=== PATIENT | female | born 1935 | race Caucasian/White ===

== ENCOUNTER 2016-12-27 02:32 | Emergency (ER) | payer MEDICAID, OTHER ==
[~2016-12-27] VITALS: Ht 152.4 cm; Wt 62.5 kg
[2016-12-27 02:34] VITALS: Ht 152.4 cm; Wt 62.5 kg
[2016-12-27] MEDS ORDERED: ONDANSETRON 4 MG INJ IV STA (03:01)
[2016-12-27] MEDS ORDERED: SOD CHLORIDE 0.9% 500 ML IV STA (03:01)
[2016-12-27] MEDS ORDERED: morphine 4 MG/ML VIAL IV STA (03:01)
--- NOTE | 2016-12-27 03:57 | RADRPT ---
PROCEDURE: CT Abdomen and pelvis without contrast. CLINICAL INDICATION: Abdominal pain. TECHNIQUE: CT scan of the abdomen and pelvis was performed on a multi-detector high-resolution CT scanner. Contiguous axial images were obtained from the lung bases to the ischial tuberosities wit hout intravenous contrast. Coronal and sagittal reformatted images were also obtained. Images were reviewed on the PACS workstation. One or more of the following dose reduction techniques were used: - Automated exposure control. - Adjustment of the mA and/or kV according to patient size. - Use of iterative reconstruction technique. Exam CTD/vol = 16.30 mGy. Total exam DLP = 864.74 mGy-cm. COMPARISON: None. FINDINGS: Evaluation of the lung bases demonstrates mild bibasilar atelectasis and bronchiectasis. There is a 4 mm nodule within the right middle lobe (image 15). Abdomen: The liver is normal in size with a mild nodular contour. There is no focal mass or dilata tion of the biliary tree. The gallbladder is not distended. The spleen, pancreas and bilateral adr enal glands are within normal limits. Bilateral kidneys are normal in size with a 9 mm hyperdense l esion within the mid left kidney. There is no radiopaque renal or ureteral calculus identified. Th ere is no hydronephrosis or hydroureter. There is no retroperitoneal adenopathy. The abdominal aor ta is of normal caliber with scattered atherosclerotic calcification. There is no abnormal bowel wall thickening or distension. There is no bowel obstruction or free air . A normal appendix is identified. There is no diverticulosis or diverticulitis. There is no asci alexx. Pelvis: The bladder is unremarkable. The uterus and adnexa are within normal limits. There is no significant pelvic adenopathy or free fluid. Evaluation of the osseous structures demonstrates no suspicious lytic or blastic lesion. There are d egenerative changes of the spine. There is a moderate compression deformity of the T6 vertebral bod y with up to 70% loss in vertebral body height. There is no bony retropulsion. There are calcified injection granulomas over bilateral buttocks. IMPRESSION: No acute abnormality identified within the abdomen and pelvis. Mild nodular contour of the liver suggestive of cirrhosis. Clinically correlate. Mild bibasilar atelectasis and bronchiectasis. Right middle lobe 4 mm nodule. Follow-up by Fleischner guidelines is recommended. Vascular calcifications reflective of atherosclerosis. Moderate compression deformity of T6, age indeterminate. Degenerative changes of the spine. .Kvng Quintero MD, Date Time Electronically viewed and signed by .Kvng Quintero MD, on 12/27/2016 03:56 .T/
[2016-12-27 04:21] LABS: ADD SCAN DIFF NO
[2016-12-27 04:30] LABS: ABNORMAL IP MESSAGE 1; BASOPHILS % 0.1 % (0.0-2.0); EOSINOPHILS # 0.1 10^3/ul (0.0-0.5); EOSINOPHILS % 0.5 % (0.0-7.0); HEMATOCRIT 41.2 % (37.0-47.0); HEMOGLOBIN 14.1 g/dl (12.0-16.0); LYMPHOCYTES # 0.3 10^3/ul (0.8-2.9); LYMPHOCYTES % 3.3 % (15.0-51.0); MEAN CORPUSCULAR HEMOGLOBIN 30.6 pg (29.0-33.0); MEAN CORPUSCULAR HGB CONC 34.2 g/dl (32.0-37.0); MEAN CORPUSCULAR VOLUME 89.4 fl (82.0-101.0); MEAN PLATELET VOLUME 11.1 fl (7.4-10.4); MONOCYTE # 0.6 10^3/ul (0.3-0.9); NEUTROPHIL # 9.1 10^3/ul (1.6-7.5); NEUTROPHILS % 89.8 % (39.0-77.0); PLATELET COUNT 114 10^3/UL (140-415); RED BLOOD COUNT 4.61 10^6/ul (4.20-5.40); RED CELL DISTRIBUTION WIDTH 12.5 % (11.5-14.5); WHITE BLOOD COUNT 10.1 10^3/ul (4.8-10.8)
[2016-12-27 04:42] LABS: ALBUMIN 4.1 g/dl (3.3-4.9)
[2016-12-27 04:43] LABS: POTASSIUM 3.5 mmol/L (3.5-5.1)
[2016-12-27 04:45] LABS: ALBUMIN/GLOBULIN RATIO 1.41; BILIRUBIN,INDIRECT 0.5 mg/dl (0-1.1); BILIRUBIN,TOTAL 0.5 mg/dl (0.2-1.3); CREATININE 0.44 mg/dl (0.44-1.00)
[2016-12-27 04:46] LABS: CALCIUM 8.8 mg/dl (8.4-10.2)
[2016-12-27 05:06] LABS: ADD UMIC YES; URINE BILIRUBIN (Dip) NEGATIVE (NEGATIVE); URINE BLOOD (Dip) TRACE (NEGATIVE); URINE COLOR YELLOW (YELLOW); URINE GLUCOSE (Dip) NEGATIVE (NEGATIVE); URINE KETONES (Dip) 40 (NEGATIVE); URINE LEUKOCYTE ESTERASE (Dip) NEGATIVE (NEGATIVE); URINE NITRITE (Dip) NEGATIVE (NEGATIVE); URINE TOTAL PROTEIN (Dip) 1+ (NEGATIVE); URINE UROBILINOGEN (Dip) 0.2 E.U./dL (0.1-1.0)
[2016-12-27 05:24] LABS: BACTERIA,URINE FEW; MUCUS,URINE MANY; SQUAMOUS EPITHELIAL CELL,UR FEW
--- NOTE | 2016-12-27 05:38 | ERD ---
ER Documentation Chief Complaint Date/Time DATE: 12/27/16 TIME: 05:37 Chief Complaint diffuse abd pain w/ vomiting and diarrhea since 2 hours ago HPI This is a 81-year-old female with diffuse abdominal vomiting diarrhea since 2 hours ago. Denies any fevers or chills. 2 episodes of diarrhea which is nonbloody. 2 episodes of vomiting was nonbloody and nonbilious. Abdominal pain is crampy in quality mild to moderate in intensity with no exacerbating or alleviating factors. ROS All systems reviewed and are negative except as per history of present illness. Allergies Allergies: Coded Allergies: No Known Allergy (Unverified , 12/27/16) PMhx/Soc History of Surgery: No Anesthesia Reaction: No Hx Neurological Disorder: No Hx Respiratory Disorders: Yes (pneumonia) Hx Cardiac Disorders: No Hx Psychiatric Problems: No Hx Miscellaneous Medical Probl: No Hx Alcohol Use: No Hx Substance Use: No Hx Tobacco Use: No Smoking Status: Never smoker Physical Exam Vitals Vital Signs Date Time Temp Pulse Resp B/P Pulse Ox O2 Delivery O2 Flow Rate FiO2 12/27/16 05:17 78 14 118/61 94 Room Air 12/27/16 02:34 987.5 91 20 134/76 98 Physical Exam Const: [] Head: Atraumatic Eyes: Normal Conjunctiva ENT: Normal External Ears, Nose and Mouth. Neck: Full range of motion..~ No meningismus. Resp: Clear to auscultation bilaterally Cardio: Regular rate and rhythm, no murmurs Abd: Soft, non tender, non distended. Normal bowel sounds Skin: No petechiae or rashes Back: No midline or flank tenderness Ext: No cyanosis, or edema Neur: Awake and alert Psych: Normal Mood and Affect Result Diagram: 12/27/1640612/27/16406 Results 24 hrs Laboratory Tests Test 12/27/16 04:07 12/27/16 04:35 White Blood Count 10.110^3/ul Red Blood Count 4.6110^6/ul Hemoglobin 14.1g/dl Hematocrit 41.2% Mean Corpuscular Volume 89.4fl Mean Corpuscular Hemoglobin 30.6pg Mean Corpuscular Hemoglobin Concent 34.2g/dl Red Cell Distribution Width 12.5% Platelet Count 80580^3/UL Mean Platelet Volume 11.1fl Neutrophils % 89.8% Lymphocytes % 3.3% Monocytes % 6.0% Eosinophils % 0.5% Basophils % 0.1% Nucleated Red Blood Cells % 0.0/100WBC Neutrophils # 9.110^3/ul Lymphocytes # 0.310^3/ul Monocytes # 0.610^3/ul Eosinophils # 0.110^3/ul Basophils # 0.010^3/ul Nucleated Red Blood Cells # 0.010^3/ul Sodium Level 139mmol/L Potassium Level 3.5mmol/L Chloride Level 105mmol/L Carbon Dioxide Level 22mmol/L Anion Gap 16 Blood Urea Nitrogen 22mg/dl Creatinine 0.44mg/dl Glucose Level 146mg/dl Calcium Level 8.8mg/dl Total Bilirubin 0.5mg/dl Direct Bilirubin 0.00mg/dl Indirect Bilirubin 0.5mg/dl Aspartate Amino Transf (AST/SGOT) 36IU/L Alanine Aminotransferase (ALT/SGPT) 41IU/L Alkaline Phosphatase 77IU/L Total Protein 7.0g/dl Albumin 4.1g/dl Globulin 2.90g/dl Albumin/Globulin Ratio 1.41 Lipase 55U/L Urine Color YELLOW Urine Clarity CLEAR Urine pH 6.0 Urine Specific Olive >=1.030 Urine Ketones 40 Urine Nitrite NEGATIVE Urine Bilirubin NEGATIVE Urine Urobilinogen 0.2 E.U./dL Urine Leukocyte Esterase NEGATIVE Urine Microscopic RBC 2-5/HPF Urine Microscopic WBC 0-2/HPF Urine Squamous Epithelial Cells FEW Urine Bacteria FEW Urine Mucus MANY Urine Hemoglobin TRACE Urine Glucose NEGATIVE% Urine Total Protein 1+ Current Medications Medications (Trade) Dose Ordered Sig/Kelli Route PRN Reason Start Time Stop Time Status Last Admin Dose Admin Sodium Chloride (NS) 500 ml @ 500 mls/hr Q1H STAT IV 12/27/16 03:01 12/27/16 04:00 DC 12/27/16 04:59 Morphine Sulfate (morphine) 4 mg ONCE STAT IV 12/27/16 03:01 12/27/16 03:02 DC 12/27/16 04:58 Ondansetron HCl (Zofran Inj) 4 mg ONCE STAT IV 12/27/16 03:01 12/27/16 03:02 DC 12/27/16 04:59 Procedures/MDM CBC: [no e/o of systemic infection or severe anemia] CMP: [no e/o severe acidosis, alkalosis, renal failure, diabetic ketoacidosis, liver disease] Lipase: [no e/o pancreatitis] PT/INR: [normal coagulation] Urine: [no e/o acute infection or hematuria] CT is negative. Medical decision-making: This patient comes in with abdominal pain and diarrhea for uncertain etiology. At this point patient will be treated empirically with Cipro and Flagyl to follow-up in 8 hours serial abdominal exams which he agrees. No evidence of any acute intra-abdominal process. Departure Diagnosis: Primary Impression: Abdominal pain Abdominal location: generalized Qualified Code: R10.84 - Generalized abdominal pain Condition: Stable OCTAVIO HERNÁNDEZ Dec 27, 2016 05:38
[2016-12-27] MEDS ORDERED: DICY10CA60 PO (05:47)
[2016-12-27] MEDS ORDERED: CIPR500T4 PO (05:47)
[2016-12-27] MEDS ORDERED: METR500T PO (05:47)
[2016-12-27 06:02] VITALS: BP 120/58; PULSE 75; RESP 17
== END 2016-12-27 06:08 | disposition home or self-care (01) ==
LOC: E/R 02:32
DX: R10.84 Generalized abdominal pain (principal); R11.10 Vomiting, unspecified
CPT/HCPCS: 36415; 74176; 80053; 81001; 83690; 85025; 96374; 96375; J2270; J2405; J7040; Z7502; 81003